=== PATIENT | female | born 1945 | race Caucasian/White ===

== ENCOUNTER 2020-09-16 08:20 | Emergency (ER) | payer OTHER, SELFPAY ==
[2020-09-16 08:33] VITALS: BP 145/56; PULSE 71; RESP 16; TEMP 36.4; O2SAT 98
--- NOTE | 2020-09-16 08:35 | PC.NURSE ---
was unable to give ua spec. and given water to drink per xpc tech.
--- NOTE | 2020-09-16 08:52 | ED.FEMALEGU ---
HPI - Female Genitourinary General Chief complaint: Urogenital-Female Stated complaint: UTI History of Present Illness HPI Narrative: This is a 74-year-old female that comes in complaining of abdominal pain in her lower pelvis area states that it feels like a urinary tract infection she has noticed that for the past week. Patient states that she has been having a little bit of nausea that started yesterday denies any back pain, fever, or any incontinence. Patient denies having much frequency states that she does have some urgency. Patient states she is has a history of diverticulitis but this is way far lower and it in her pelvis area and when she does not urinate she feels it more Related Data Home Medications Medication Instructions Recorded Confirmed calcium carbonate 500 mg calcium 500 mg PO DAILY 04/19/19 (1,250 mg) tablet cholecalciferol (vitamin D3) 25 1,000 unit PO DAILY 04/19/19 mcg (1,000 unit) capsule multivit and minerals-ferrous 15 ml PO DAILY 04/19/19 gluconate 9 mg iron/15 mL oral liquid omega-3 fatty acids 500 mg capsule 500 mg PO DAILY 04/19/19 Allergies Allergy/AdvReac Type Severity Reaction Status Date / Time celecoxib Allergy Intermediate Hives / Verified 04/05/19 12:09 Red Face Penicillins Allergy Other Verified 09/16/20 08:48 Review of Systems Review of Systems: Narrative: CONSTITUTIONAL: Denies fever, chills, or sweats. EYES: Denies visual changes, redness, or discharge. ENT: Denies rhinorrhea, congestion, sore throat, or otalgia. CARDIOVASCULAR:Denies chest pain, palpitations, or edema. RESPIRATORY: Denies cough or dyspnea. GASTROINTESTINAL: Denies abdominal pain, nausea, vomiting, or diarrhea. GENITOURINARY: Denies dysuria or hematuria abdominal pressure and some urgency. SKIN:[Denies rash or itching. MUSCULOSKELETAL:Denies back pain, joint pain, or myalgia. NEUROLOGIC: Denies headache, numbness, or weakness. PSYCHIATRIC:Denies anxiety or depression PMFSH Past Medical History Medical History Osteoporosis Social History Social History Gender identity (if verbalized by the patient): Female Comments At time as signature, I have reviewed and agree with nursing past medical, social, surgical and family history. Please see nursing chart for further information. There is no relevant family history pertinent to the presenting complaint. Exam Narrative: Exam Narrative: GENERAL:Well-appearing, well-nourished, and in no acute distress. HEAD:Normocephalic, atraumatic. EYES: PERRLA and EOMI. ENT: Nares clear, no rhinorrhea or epistaxis. Mucous membranes moist. NECK: Supple. CHEST: Clear to auscultation. No respiratory distress. HEART: Regular rate and rhythm. No murmur heard. Normal peripheral pulses. ABDOMEN: Soft, nontender, nondistended, normal active bowel sounds some urgency and frequency no pain with palpitation some nausea no vomiting. EXTREMITIES: Normal range of motion. No edema. SKIN: Warm, dry, no rash. NEURO: No focal deficits. Alert and oriented x3. Course [employer]/PA Physician Supervision Discussed with patient if symptoms do not resolve or she should become febrile she should follow-up with her primary care provider and or go to the local emergency room. Vital Signs Vital signs: Vital Signs Temperature 97.5 F L 09/16/20 08:33 Pulse Rate 71 09/16/20 08:33 Respiratory Rate 16 09/16/20 08:33 Blood Pressure 145/56 H 09/16/20 08:33 Pulse Oximetry 98 09/16/20 08:33 Temperature 97.5 F L 09/16/20 08:33 Pulse Rate 71 09/16/20 08:33 Respiratory Rate 16 09/16/20 08:33 Blood Pressure 145/56 H 09/16/20 08:33 Pulse Oximetry 98 09/16/20 08:33 MDM - Female Genitourinary MDM Narrative Medical decision making narrative: Urine is negative suggested follow up care with PCP due no culture at this time. Differential Diagnosis D
--- NOTE | 2020-09-16 09:26 | PC.NURSE ---
no urine cx order per business continuity analyst
== END 2020-09-16 09:07 | disposition home or self-care (01) ==
PROVIDERS: Emergency Provider Nurse Practitioner Family; PCP Emergency Medicine
DX: N30.00 Acute cystitis without hematuria (principal); M81.0 Age-related osteoporosis without current pathological fracture
CPT/HCPCS: 81003; 99213; G0463

== ENCOUNTER → 2020-11-14 13:17 | Outpatient (CLI) | payer OTHER, SELFPAY ==
--- NOTE | ~2020-11-14 | DEXA_ITS ---
Bone Density Report Name: Daina Bauman Age: 74 Sex: Female Ethnicity: White Date of : 1945 Indication: postmenopausal osteoporosis; monitoring treatment; height loss; hysterectomy; Referring Provider: AISHA KAUFFMAN Study: Bone densitometry was performed. Exam Date: November 14, 2020 Accession number: [id number] Bone Density: Region BMD T-score Z-score Classification AP Spine (L1-L4) 0.747 -2.7 -0.4 Osteoporosis Femoral Neck (Left) 0.607 -2.2 -0.2 Osteopenia Total Hip (Left) 0.692 -2.0 -0.4 Osteopenia Femoral Neck (Right) 0.623 -2.0 -0.1 Osteopenia Total Hip (Right) 0.721 -1.8 -0.1 Osteopenia Total Hip Mean 0.707 -1.9 -0.3 Osteopenia World Health Organization criteria for BMD impression classify patients as: Normal (T-score at or above -1.0), Osteopenia (T-score between -1.0 and -2.5), or Osteoporosis (T-score at or below -2.5). 10-year Fracture Risk: FRAX not reported because: Some T-score for Spine Total or Hip Total or Femoral Neck at or below -2.5 Treated for osteoporosis Previous Exams: Region Exam Age BMD T-score BMD Change BMD Change Date g/cm2 vs Baseline vs Previous AP Spine(L1-L4) 11/14/2020 74 0.747 -2.7 -0.002 -0.019 11/03/2018 72 0.766 -2.6 0.017 0.017 09/03/2016 70 0.749 -2.7 Total Hip(Left) 11/14/2020 74 0.692 -2.0 -0.023 -0.040* 11/03/2018 72 0.732 -1.7 0.017 0.017 09/03/2016 70 0.715 -1.9 Total Hip(Right) 11/14/2020 74 0.721 -1.8 -0.014 -0.031* 11/03/2018 72 0.752 -1.6 0.016 0.016 09/03/2016 70 0.735 -1.7 *Denotes significance at 95% confidence level, LSC for AP Spine = 0.022 g/cm2, LSC for Total Hip = 0.027 g/cm2 Clinical Information Provided by Patient: Smokes Is being treated for osteoporosis Has used the following medications: Fosamax (i.e. alendronate), Vitamin D, Calcium Has the following medical conditions: Hysterectomy Patient maximum height was 64 Menopause Age: 38 No regular weight bearing exercise Does not regularly consume dairy products Drinks caffeinated beverages Onset of menses at age 14 Number of children 3 Impression: The patient has osteoporosis, based on the Total Spine T-score. The patient has risk factors, including: smoking. The BMD for the Total Hip(Left) decreased, changing by -0.040 since the last DXA exam. The BMD for the Total Hip(Right) decre
--- NOTE | ~2020-11-14 | MM_ITS ---
EXAMINATION: MM screening [facility] BI w maria m HISTORY: Screening TECHNIQUE: Craniocaudal and mediolateral oblique 3-D tomosynthesis images were obtained and synthetic 2-D images were generated. CAD analysis was submitted and interpreted. COMPARISON: Comparison to multiple prior studies sequentially, with oldest reviewed study dated 03/11. BREAST PARENCHYMAL COMPOSITION: There are scattered areas of fibroglandular density. FINDINGS: There is no evidence of suspicious mass, calcification, or architectural distortion to sugg est malignancy in either breast. There has been no suspicious interval change. IMPRESSION: 1. No mammographic evidence of malignancy. 2. Recommend routine screening mammography in one year. BI-RADS Category 1: Negative Reviewed, dictated and finalized at location A.
== END ==
PROVIDERS: PCP Emergency Medicine; Visit Provider Emergency Medicine
DX: Z12.31 Encounter for screening mammogram for malignant neoplasm of breast (principal); M81.0 Age-related osteoporosis without current pathological fracture; M85.852 Other specified disorders of bone density and structure, left thigh; M85.851 Other specified disorders of bone density and structure, right thigh
CPT/HCPCS: 77063; 77067; 77080

== ENCOUNTER 2021-08-17 13:26 | Emergency (ER) | payer OTHER, SELFPAY ==
--- NOTE | ~2021-08-17 | XR_ITS ---
EXAMINATION: XR chest 2V Exam Date/Time: 08/17/2021 12:38 CDT CLINICAL HISTORY: COUGH, LT LOWER LUNG DIMISHED Comparison: 04/05/19. RESULT: Lines, tubes, and devices: None. Lungs and pleura: Senescent changes, otherwise clear. Cardiomediastinal silhouette: Stable cardiomediastinal silhouette. Other: No acute osseous or upper abdominal finding. IMPRESSION: No acute cardiopulmonary process Reviewed, dictated and finalized at location K.
[2021-08-17 13:33] VITALS: BP 158/56; PULSE 63; RESP 18; TEMP 36.6; O2SAT 98
--- NOTE | 2021-08-17 13:33 | ED.URI ---
HPI - URI/Sore Throat General Chief Complaint: Upper Respiratory Infection Stated Complaint: Cough Time Seen by Provider: 08/17/21 13:34 Source: patient, family, RN notes reviewed and old records reviewed Mode of arrival: ambulatory Limitations: no limitations History of Present Illness HPI Narrative: 75-year-old female presents to the [facility] with complaints of a cough for several weeks. Patient states that started as an upper respiratory issue. Has taken multiple [id number] products with no relief. Patient is a smoker, history of chronic bronchitis and pneumonia. Denies chest pain or abdominal pain. Denies fevers. MD elicited complaint: cough Related Data Home Medications Medication Instructions Recorded Confirmed calcium carbonate 500 mg calcium 500 mg PO DAILY 04/19/19 08/17/21 (1,250 mg) tablet cholecalciferol (vitamin D3) 25 1,000 unit PO DAILY 04/19/19 08/17/21 mcg (1,000 unit) capsule multivit and minerals-ferrous 15 ml PO DAILY 04/19/19 08/17/21 gluconate 9 mg iron/15 mL oral liquid omega-3 fatty acids 500 mg capsule 500 mg PO DAILY 04/19/19 08/17/21 Allergies Allergy/AdvReac Type Severity Reaction Status Date / Time celecoxib Allergy Intermediate Hives / Verified 08/17/21 13:31 Red Face Penicillins Allergy Other Verified 08/17/21 13:31 Review of Systems Review of Systems: All systems reviewed & are unremarkable except as noted in HPI and below Constitutional: Constitutional: Reports no additional constitutional complaints, Denies chills, Denies fever(s) and Denies headache(s) Eyes: Eyes: Reports no additional eye complaints ENT: Reports as per HPI, Denies vertigo, Denies dizziness, Denies headache(s), Denies nasal congestion and Denies sore throat Cardiovascular: Cardiovascular: Reports no additional cardiovascular complaints, Denies chest pain, Denies syncope, Denies rapid heart rate and Denies dyspnea Respiratory: Respiratory: Reports as per HPI, Reports cough, Denies dyspnea and Denies wheezing Gastrointestinal: Gastrointestinal: Reports no additional gastrointestinal complaints, Denies abdominal pain, Denies diarrhea, Denies nausea and Denies vomiting Musculoskeletal: Musculoskeletal: Reports no additional musculoskeletal complaints and Denies numbness Integumentary/Breasts: Skin/Breast: Reports system reviewed and no additional complaints, except as docu Neurologic: Reports system reviewed and no additional complaints, except as documented, Denies vertigo, Denies dizziness, Denies syncope, Denies headache(s), Denies focal weakness and Denies numbness Psychiatric: Psychiatric: Reports no additional psychiatric complaints Allergic/Immunologic: Allergic/Immunologic: Reports no additional allergic/immunologic complaints and Denies wheezing PMFSH Past Medical History Medical History Osteoporosis Social History Social History (Updated 08/17/21 @ 19:53 by Muna Mcdowell APRN) Smoking status: Current every day smoker Gender identity (if verbalized by the patient): Female Comments At the time of my signature, I reviewed and agree with the nursing past medical, surgical, social, and family history. There is no relevant family history pertinent to the patient complaint. Exam Const: General: cooperative, healthy appearing, no acute distress, well developed and alert Nutritional Appearance: well nourished Orientation/consciousness: patient oriented x3 Limitations: no limitations HENMT: Head: normal to inspection Ears: external ears normal, TM's normal bilaterally and EAC's normal Eyes: Conjunctivae: conjunctivae normal Pupils: Equal, round and reactive pupils present Neck: Neck: normal visual inspection, no lymphadenopathy and no meningeal signs Chest: Chest palpation & inspection: normal inspection of the chest Resp: Effort & Inspection: normal respiratory effort and no use of accessory muscles Auscultat
== END 2021-08-17 14:20 | disposition home or self-care (01) ==
PROVIDERS: Emergency Provider Nurse Practitioner; PCP Emergency Medicine
DX: J40 Bronchitis, not specified as acute or chronic (principal); F17.200 Nicotine dependence, unspecified, uncomplicated
CPT/HCPCS: 71046; 99213; G0463

== ENCOUNTER 2022-10-07 11:45 | Observation (INO) | payer OTHER, SELFPAY ==
[2022-10-07] VITALS (17 sets, daily range): BP systolic 134–209; BP diastolic 49–89; PULSE 72–81; RESP 12–27; TEMP 36.1–36.7; O2SAT 95–100; BMI 20.2
--- NOTE | ~2022-10-07 | MR_ITS ---
MRI of the brain Clinical History: Slurred speech Technique: Axial and sagittal T1-weighted images were acquired. These were followed by axial T2-weigh terrance, diffusion weighted, gradient, and FLAIR images.. Following intravenous administration of 10 cc M ultiHance gadolinium, T1-weighted fat-sat imaging was performed in the axial, sagittal, and coronal p lanes. Findings: There is no acute infarct, intracranial hemorrhage, or mass lesion. There is extensive speed reading teacher gurdeep white matter disease throughout the periventricular white matter bilaterally. Small chronic lacun ar infarct noted in the left frontal periventricular white matter. Ventricles and subarachnoid spaces are minimally dilated. Orbits are unremarkable. Paranasal sinuses and mastoid air cells are clear. Major intracranial flow voids are intact. Sagittal midline structures are intact. No abnormal postcontrast enhancement identified. IMPRESSION: No acute infarct, intracranial hemorrhage, or mass lesion. Extensive chronic microvascular ischemic change and small chronic lacunar infarct in the left frontal periventricular white matter. Reviewed, dictated and finalized at location . IMPRESSION: No acute infarct, intracranial hemorrhage, or mass lesion. Extensive chronic microvascular ischemic change and small chronic lacunar infar ct in the left frontal periventricular white matter.
--- NOTE | ~2022-10-07 | MR_ITS ---
MRA HEAD History: CVA, slurred speech Technique: 3D time of flight MRA of the head is performed. Findings: The right and left distal vertebral arteries and the basilar and posterior cerebral arterie s are normal. Right and left distal internal carotid arteries and anterior and middle cerebral arteri es are normal. There is no aneurysm, stenosis, or occlusion. Impression: No occlusion, stenosis, or aneurysm. Reviewed, dictated and finalized at location . Impression: No occlusion, stenosis, or aneurysm.
--- NOTE | ~2022-10-07 | US_ITS ---
Procedure: Duplex Doppler examination of the bilateral carotids. Indication: TIA Technique: Real time, color-flow and pulse wave Doppler examination of the bilateral carotids was performed. Findings: Espinosa scale ultrasonography of the right neck demonstrated small plaques at the proximal right interna l carotid artery. There was demonstration of normal color-flow and Doppler waveforms within the right common, internal and external carotid arteries. The peak systolic velocities in the right common, in ternal and external carotid arteries were demonstrated to be 102 cm/sec, 189 cm/sec and 113 cm/sec re spectively. The right ICA/CCA ratio was 2.2.The proximal right internal carotid artery demonstrates 2 0% stenosis relative to the normal distal artery lumen diameter. Espinosa scale sonography of the left neck demonstrated no significant plaque. There was demonstration of normal color-flow and wave forms within the left common, internal and external carotid arteries. The peak systolic velocities in the left common, internal and external carotid arteries were demonstrate d to be 122cm/sec, 97 cm/sec and 137 cm/sec respectively. The left ICA/CCA ratio was 0.9. The proxima l left internal carotid artery demonstrates 0% stenosis relative to the normal distal artery lumen di ameter. There was antegrade flow demonstrated in the bilateral vertebral arteries. Impression: Increased velocity in the proximal right internal carotid artery suggests a moderate degree (50-69%) stenosis, however grayscale images suggest a low-grade stenosis of approximately 20%. Consider CT ang iogram to further assess degree of stenosis. Note: The methodology used is an indirect measurement validated against a direct method (such as the NASCET criteria) that compares diameters at the stenosis to the distal ICA. Reviewed, dictated and finalized at location M. Impression: Increased velocity in the proximal right internal carotid artery suggests a mod erate degree (50-69%) stenosis, however grayscale images suggest a low-grade st enosis of approximately 20%. Consider CT angiogram to further assess degree of stenosis. Note: The methodology used is an indirect measurement validated against a direct meth od (such as the NASCET criteria) that compares diameters at the stenosis to the distal ICA.
--- NOTE | ~2022-10-07 | CT_ITS ---
CT head without contrast Indication: Expressive aphasia, right-sided facial droop Technique: Serial scans were obtained through the brain without the administration of contrast. Dose reduction technique was used on this scan by utilizing automated exposure control and iterative recon struction technique. The dose-length product (DLP) was 605.33 mGy-cm. Findings: There is no evidence of intracranial hemorrhage, mass lesion, or acute infarct. The ventri cles and subarachnoid spaces are unremarkable.. Moderate low attenuation regions are seen within the periventricular white matter bilaterally, likely representing changes from chronic microvascular isch emic disease. There is no evidence of edema, mass effect or midline shift. The visualized paranasal sinuses and mastoid air cells are clear. Impression: No intracranial hemorrhage, mass, or definite acute infarct is identified. If there is clinical jonathan rn for acute ischemia, then MR is recommended for further evaluation. Moderate chronic white matter changes, as above. Reviewed, dictated and finalized at location . Impression: No intracranial hemorrhage, mass, or definite acute infarct is identified. If t here is clinical concern for acute ischemia, then MR is recommended for further evaluation. Moderate chronic white matter changes, as above.
--- NOTE | ~2022-10-07 | CT_ITS ---
CT ANGIOGRAM NECK AND HEAD History: Expressive aphasia. Technique: Serial spiral axial images through the head and neck were obtained during arterial phase I V injection of 100 cc of Omnipaque 350. 3-D postprocessing and MIP images were then reconstructed on the remote workstation. Dose reduction technique was used on this scan by utilizing automated exposur e control and iterative reconstruction technique. The dose-length product (DLP) was 1127.25 mGy-cm. CTA neck findings: Left vertebral is patent, unremarkable. Right vertebral artery appears to be felipe edly hypoplastic with areas of complete occlusion proximally. Vertebral artery dissection is a potent ial alternative consideration. Bilateral common carotid, internal carotid, and external carotid arter ies are patent. No stenosis or aneurysm of these vessels. The proximal right internal carotid artery demonstrates 0% stenosis relative to the normal distal artery lumen diameter. The proximal left inter nal carotid artery demonstrates 0% stenosis relative to the normal distal artery lumen diameter. Mild to moderate emphysema noted with biapical pulmonary scarring CTA head findings: Distal vertebral arteries, basilar artery, and posterior cerebral arteries are pat ent. Distal internal carotid arteries, middle cerebral arteries, and anterior cerebral arteries are p atent. No large vessel occlusion. No stenosis or aneurysm. 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 Diagnostic considerations i nclude partially hypoplastic vessel versus possibility of vertebral artery dissection proximally. Cor relate clinically. Axial T1 fat-sat MR images would be recommended for most sensitive evaluation for dissection, if clinically indicated. No other significant vascularity reality seen. Mild to moderate emphysema. Reviewed, dictated and finalized at location . 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 Diagn ostic considerations include partially hypoplastic vessel versus possibility of vertebral artery dissection proximally. Correlate clinically. Axial T1 fat-sat MR images would be recommended for most sensitive evaluation for dissection, i f clinically indicated. No other significant vascularity reality seen. Mild to moderate emphysema.
--- NOTE | 2022-10-07 11:55 | ECG_ITS ---
Measurements Intervals Leon Rate: 74 P: 58 CA: 125 QRS: 59 QRSD: 80 T: 62 QT: 394 QTc: 438 Interpretive Statements SINUS RHYTHM NORMAL ELECTROCARDIOGRAM NO PREVIOUS ECG AVAILABLE FOR COMPARISON Electronically Signed On 10-08-2022 16:53:44 CDT by Cabrera Mcintyre M.D.
[2022-10-07 12:10] LABS: Basophils Percent Auto 0.4 % (0.2-1.2); Eosinophils Absolute Auto 0.1 K/mm3 (0-0.3); Eosinophils Percent Auto 0.7 % (0-4.4); Hematocrit 38.5 % (37.0-47.0); Hemoglobin 12.9 g/dL (12.0-15.0); Immature Granulocyte Absolute 0.02 K/mm3 (0.00-0.031); Immature Granulocyte Percent A 0.2 % (0-0.5); Lymphocytes Percent Auto 39.8 % (18.3-44.2); Mean Corpuscular HGB Conc 33.5 g/dl (32-36); Mean Corpuscular Hemoglobin 31.1 pg (26-34); Mean Corpuscular Volume 92.8 fl (80-100); Mean Platelet Volume 12.1 fl (7.4-10.4); Monocytes Percent Auto 12.5 % (2.6-8.5); Neutrophils Absolute Auto 3.8 K/mm3 (1.3-6.7); Neutrophils Percent Auto 46.4 % (45.5-73.1); Platelet Count Result 238 k/mm3 (150-375); Red Blood Count 4.15 M/mm3 (4.2-5.4); Red Cell Distribution Width 13.2 % (11.5-14.5); White Blood Count 8.3 K/mm3 (4.5-10.0)
[2022-10-07 12:21] LABS: Alanine Aminotransferase 23 U/L (6-35); Alkaline Phosphatase 75 U/L (38-126); Anion Gap 6 mmol/L (8-16); Aspartate Amino Transferase 35 U/L (14-36); Bilirubin,Total 0.6 mg/dL (0.2-1.3); Blood Urea Nitrogen 10 mg/dL (7-17); Calcium 8.6 mg/dL (8.4-10.2); Carbon Dioxide 32 mmol/L (22-30); Chloride 102 mmol/L (98-107); Estimated CRCL calculation 50 ml/min; Estimated Glomerular Filt Rate > 60; Glucose 100 mg/dL (65-110); Potassium 3.3 mmol/L (3.4-5.0); Sodium 140 mmol/L (137-145)
[2022-10-07 12:51] LABS: Appearance Urine Clear (Clear); Bacteria Urine None Seen /hpf; Bilirubin Urine Negative (Negative); Blood Urine Negative (Negative); Color Urine Dark Yellow (Yellow); Glucose Urine UA Negative (Negative); Ketones Urine Negative (Negative); Leukocyte Esterase Ur Negative LEU/UL (Negative); Nitrate Urine Negative (Negative); Non Pathogenic Casts 0-2; Protein Urine 1+ mg/dL (Negative); RBC Urine 0-2 /hpf (0-2); Specific Grav Ur 1.015 (1.001-1.035); Squamous Epithelial Cell Urine None seen /hpf (Few); WBC Urine 0-5 /hpf
--- NOTE | 2022-10-07 13:01 | ED.AMS ---
HPI - Altered Mental Status General Chief Complaint: Altered Mental Status Stated Complaint: altered mental status Time Seen by Provider: 10/07/22 12:43 History of Present Illness HPI narrative: Patient is a 76-year-old female presenting with speech difficulties. Last known well was approximately 20 hours ago. Patient's daughter is at bedside and states that her brother was at the patient's house yesterday afternoon and she was normal. Patient's daughter saw her this morning and noticed that her speech was abnormal. States that she is just speaking incomprehensibly. Patient is alert and following commands. She has garbled speech and is speaking somewhat nonsensically though she is able to answer yes and no questions without difficulty. No numbness or weakness. Complains of a sinus headache but no other complaints. Related Data Home Medications Medication Instructions Recorded Confirmed calcium carbonate 500 mg calcium 500 mg PO DAILY 04/19/19 10/07/22 (1,250 mg) tablet (Calcium 500) cholecalciferol (vitamin D3) 25 1,000 unit PO DAILY 04/19/19 10/07/22 mcg (1,000 unit) capsule multivit and minerals-ferrous 15 ml PO DAILY 04/19/19 10/07/22 gluconate 9 mg iron/15 mL oral liquid (multivitamin with minerals) omega-3 fatty acids 500 mg capsule 500 mg PO DAILY 04/19/19 10/07/22 Allergies Allergy/AdvReac Type Severity Reaction Status Date / Time celecoxib Allergy Intermediate Hives / Verified 10/07/22 17:44 Red Face Penicillins Allergy Other Verified 10/07/22 17:44 Review of Systems Review of Systems: All systems reviewed & are unremarkable except as noted in HPI and below PMFSH Past Medical History Medical History (Updated 10/08/22 @ 16:06 by Radha Buck MD) Osteoporosis Psoriasis Surgical History Surgical History (Updated 10/07/22 @ 19:56 by Yesenia Negron NP) History of appendectomy History of oophorectomy Family History Family History Mother Cerebrovascular accident, Onset Age: 80 Patient's mother is , Onset Age: 80 Father Family history of chronic obstructive pulmonary disease, Onset Age: 82 Family history of type 2 diabetes mellitus, Onset Age: 82 Patient's father is , Onset Age: 82 Social History Social History (Updated 10/07/22 @ 19:56 by Yesenia Negron NP) Social History: The patient has 3 children. She is . She is retired from banking. The patient continues to smoke 1 pack a cigarettes a day. Code status full code Smoking packs per day: 1 Smoking cigarettes per day: 20.0 Smoking status: Current every day smoker Tobacco type: cigarettes Alcohol intake: never Substance use: never Substance use type: does not use Lack of Transportation: No Lack of Food: Never True Current Housing: I Have Housing Concerned About Future Housing: No Difficulty Paying Gas/Electric Bills: No Difficulty Paying for Meds: No Currently Unemployed: No Education: Associate Degree Difficulty w/ Childcare or Family Care: No Gender identity (if verbalized by the patient): Female Spiritual care concerns: No Exam Narrative: GENERAL: Well-appearing, well-nourished, and in no acute distress. HEAD: Normocephalic, atraumatic. EYES: PERRLA and EOMI. ENT: Nares clear, no rhinorrhea or epistaxis. Mucous membranes moist. NECK: Supple. CHEST: Clear to auscultation. No respiratory distress. HEART: Regular rate and rhythm. No murmur heard. Normal peripheral pulses. ABDOMEN: Soft, nontender, nondistended EXTREMITIES: Normal range of motion. No edema. SKIN: Warm, dry, no rash. NEURO: +expressive aphasia; no sensory deficits, 5/5 strength in all extremities; no facial droop, no pronator drift PSYCH: Normal mood and affect. Course Vital Signs Vital signs: Vital Signs Temperature 98.1 F 10/07/22 11:49 Pulse Rate 72 10/07/22
[2022-10-07 13:10] LABS: Add Urine Microscopic? YES
[2022-10-07] MEDS: SODIUM CHLORIDE 0.9% IV 1,000 ML 999 ML IV CONT (13:35)
[2022-10-07 14:48] LABS: INR 1.1; Prothrombin Time 15.2 Seconds (11.1-14.7)
[2022-10-07 14:49] LABS: Partial Thromboplastin Time 31.4 SECONDS (22.3-36.8)
--- NOTE | 2022-10-07 15:17 | PC.NURSE ---
C collar placed on pt at this time per Dr. Buck
[2022-10-07] MEDS: ACETAMINOPHEN 500 MG TABLET 1000 MG PO (17:05)
--- NOTE | 2022-10-07 17:15 | ADMGEN ---
This patient, Daina Bauman, was admitted to IMU Room 206-02. Patient/family oriented to hospital policies and general routines including ID bracelet, bed and alarms, visiting hours, pain management, procedures, bathroom and other care routines, personal items, smoking policy, room service/diet, and visiting hours. Information on how to activate the Rapid Response Team has been discussed. Patient/Family are encouraged to report perceived risks to care and to ask questions if they do not understand what they are told or what they should do.
[2022-10-07] MEDS: hydrALAZINE HCL 20 MG/ML VIAL 10 MG IV PUSH (17:43)
--- NOTE | 2022-10-07 18:02 | PM.IMHP ---
H&P: HPI History of Present Illness Date/Time: 10/07/22 18:02 Chief Complaint: Altered mental status Narrative: This is a 76-year-old female patient who had been her normal self. The patient was seen by her son last night he stated that she was her normal usual self. However this morning she woke up and went to her daughter's house and was having difficulty speaking. The patient knew what she wanted to say but could not get the words out. Her daughter reported that her speech was incomprehensible. The patient is answering questions for me at this time. The patient stated that she had a frontal headache for approximately 2 days. She stated that she took some Tylenol and her headache has resolved since then. The patient has no history of hypertension but her blood pressure is elevated today.Head and neck CTA was read as followsVery low caliber right vertebral artery with areas of proximal occlusion. Diagnostic considerations include partially hypoplastic vessel versus possibility of vertebral artery dissection proximally. Correlate clinically. Axial T1 fat-sat MR images would be recommended for most sensitive evaluation for dissection, if clinically indicated. No other significant vascularity reality seen. Mild to moderate emphysema. Head CT was read as a following No intracranial hemorrhage, mass, or definite acute infarct is identified. If there is clinical concern for acute ischemia, then MR is recommended for further evaluation. Moderate chronic white matter changes, as above. The patient was given IV fluids, Tylenol and hydralazine. The ED provider noted that she spoke with the neurologist Dr. Stern who stated that the patient needed higher level care. ER provider noted that she called slu and they recommended that the patient receive an MRI/MRA and placed the patient in a cervical collar until the results of the MRI/MRA. Later on there was further discussion between the neurologist in ER provider. According to the ED provider the patient did not require transfer at this time. The patient is being admitted to observation status on the date of service of 10/07/2022. Review of Systems Review of Systems: All systems reviewed & are unremarkable except as noted in HPI and below Constitutional: Constitutional: Reports as per HPI and Reports no additional constitutional complaints Eyes: Eyes: Reports as per HPI and Reports no additional eye complaints ENT: Reports system reviewed and no additional complaints, except as documented and Reports Normal hearing present Cardiovascular: Cardiovascular: Reports no additional cardiovascular complaints Respiratory: Respiratory: Reports no additional respiratory complaints and Reports no additional respiratory complaints Gastrointestinal: Gastrointestinal: Reports as per HPI and Reports no additional gastrointestinal complaints Musculoskeletal: Musculoskeletal: Reports no additional musculoskeletal complaints Integumentary/Breasts: Skin/Breast: Reports system reviewed and no additional complaints, except as docu and Reports as per HPI Neurologic: Reports system reviewed and no additional complaints, except as documented, Reports as per HPI and Reports Normal hearing present Psychiatric: Psychiatric: Reports no additional psychiatric complaints and Reports as per HPI Endocrine: Endocrine: Reports no additional endocrine complaints Hematologic/Lymphatic: Hematologic/Lymphatic: Reports no additional hematologic/lymphatic complaints Allergic/Immunologic: Allergic/Immunologic: Reports no additional allergic/immunologic complaints PMFSH Past Medical History Medical History (Updated 10/07/22 @ 20:04 by Yesenia Negron NP) Osteoporosis Psoriasis Surgical History Surgical History (Updated 10/07/22 @ 19:56 by Yesenia Negron NP) History of appendectomy History of oophorectomy Family History Family History Mother
[2022-10-07] MEDS: CLOBETASOL PROPIONATE 0.05% CREAM 15 GM 1 APPLIC TOPICAL (21:17)
[2022-10-08] VITALS (11 sets, daily range): BP systolic 142–147; BP diastolic 54–93; PULSE 63–74; RESP 18–24; TEMP 35.7–36.7; O2SAT 95–97
--- NOTE | 2022-10-08 | ECHO_ITS ---
Patient Info Name: Daina Bauman Age: 76 years : 1945 Gender: Female Ht: 63 in Wt: 114 lbs BSA: 1.51 m2 HR: 78 bpm BP: 142 / 54 mmHg Technical Quality: Fair Exam Date: 10/08/2022 9:15 AM Exam Location: [facility] Pulmonary Exam Room: [facility] [place] Patient Status: Inpatient Admit Date: 10/07/2022 Staff Ordering Physician: Yesenia Negron NP Addressing Machine Operator: Tita Moore RDCS Attending Provider: Cabrera Tyson MD Referring Physician: Jamil HORNER; Exam Type: CA echo doppler w bubble study Study Info Indications - TIA Complete two-dimensional, color flow and Doppler transthoracic echocardiogram is performed with agitated saline. Contrast/Agitated Saline Contrast/Ag. Saline: Agitated Saline Amount: 20.00 ml Existing IV Access: Yes Summary 1. Left ventricular chamber dimension is normal. 2. Left ventricular systolic function is normal, estimated at 60-65%. 3. The left ventricular diastolic function is grade I diastolic dysfunction. 4. E/e' 8 is minimally elevated. 5. Left atrial chamber dimension is mildly enlarged. 6. There is moderate aortic valve sclerosis. 7. There is mild to moderate aortic valve stenosis with a peak velocity of 214 cm/s, mean gradient of 9 mmHg, and aortic valve area of 1.5 cm2. 8. There is mild to moderate aortic valve regurgitation. 9. There is mild mitral valve regurgitation. 10. There is trace tricuspid valve regurgitation. 11. Mild pulmonary hypertension, estimated pulmonary arterial systolic pressure is 40 mmHg. Left Ventricle E/e' 8 is minimally elevated. Left ventricular chamber dimension is normal. Left ventricular systolic function is normal, estimated at 60-65%. The left ventricular diastolic function is grade I diastolic dysfunction. Right Ventricle Right ventricular systolic function is normal and with normal TAPSE 2.2 cm. Right ventricular chamber dimension is normal. Left Atria Left atrial chamber dimension is mildly enlarged. Right Atria Right atrial chamber dimension is normal. Atrial Septum Agitated saline injection with and without valsalva maneuver opacified right side cardiac chambers without shunt to left side cardiac chambers. Intact interatrial septum visualized by 2D and agitated saline imaging. Aortic Valve The aortic valve is trileaflet. There is moderate aortic valve sclerosis. There is mild to moderate aortic valve stenosis with a peak velocity of 214 cm/s, mean gradient of 9 mmHg, and aortic valve area of 1.5 cm2. There is mild to moderate aortic valve regurgitation. Pulmonic Valve There is no pulmonic regurgitation. Mitral Valve There is no mitral valve stenosis. There is mild mitral valve regurgitation. Tricuspid Valve There is trace tricuspid valve regurgitation. Mild pulmonary hypertension, estimated pulmonary arterial systolic pressure is 40 mmHg. Pericardium/Pleural There is no pericardial effusion. Inferior Vena Cava Normal inferior vena cava with >50% collapse upon inspiration consistent with normal right atrial pressure, 5 mmHg. Aorta The aortic root size at the sinus of Valsalva is normal. Left Ventricular Outflow Tract Name Value Normal LVOT 2D LVOT Diameter 2.0 cm LVOT Doppler
[2022-10-08 05:01] LABS: Basophils Percent Auto 0.4 % (0.2-1.2); Eosinophils Absolute Auto 0.1 K/mm3 (0-0.3); Eosinophils Percent Auto 1.2 % (0-4.4); Hematocrit 38.7 % (37.0-47.0); Hemoglobin 13.2 g/dL (12.0-15.0); Immature Granulocyte Absolute 0.01 K/mm3 (0.00-0.031); Immature Granulocyte Percent A 0.1 % (0-0.5); Lymphocytes Absolute Auto 3.02 K/mm3 (0.9-3.2); Lymphocytes Percent Auto 38.8 % (18.3-44.2); Mean Corpuscular HGB Conc 34.1 g/dl (32-36); Mean Corpuscular Hemoglobin 31.4 pg (26-34); Mean Corpuscular Volume 92.1 fl (80-100); Mean Platelet Volume 12.2 fl (7.4-10.4); Monocytes Absolute Auto 1.1 K/mm3 (0.1-0.6); Monocytes Percent Auto 13.8 % (2.6-8.5); Neutrophils Absolute Auto 3.6 K/mm3 (1.3-6.7); Neutrophils Percent Auto 45.7 % (45.5-73.1); Platelet Count Result 221 k/mm3 (150-375); Red Cell Distribution Width 13.2 % (11.5-14.5); White Blood Count 7.8 K/mm3 (4.5-10.0)
[2022-10-08 05:08] LABS: Alanine Aminotransferase 20 U/L (6-35); Albumin Level 3.8 g/dL (3.5-5.1); Alkaline Phosphatase 81 U/L (38-126); Anion Gap 3 mmol/L (8-16); Aspartate Amino Transferase 25 U/L (14-36); Bilirubin,Total 0.6 mg/dL (0.2-1.3); Blood Urea Nitrogen 7 mg/dL (7-17); Calcium 8.3 mg/dL (8.4-10.2); Carbon Dioxide 31 mmol/L (22-30); Chloride 105 mmol/L (98-107); Cholesterol 217 mg/dL (0-200); Estimated CRCL calculation 57 ml/min; Estimated Glomerular Filt Rate > 60; Glucose 94 mg/dL (65-110); HDL Direct 46 mg/dL; Magnesium 1.3 mg/dL (1.6-2.3); Potassium 3.2 mmol/L (3.4-5.0); Sodium 139 mmol/L (137-145); Triglycerides 83 mg/dL (<150)
[2022-10-08 05:19] LABS: LDL Cholesterol Direct 144 mg/dL
[2022-10-08] MEDS: ASPIRIN 81 MG ENTERIC TABLET PO (08:41)
[2022-10-08] MEDS: OMEGA 3 POLYUNSAT FATTY ACIDS 1 GM CAP PO (08:41)
[2022-10-08] MEDS: CLOBETASOL PROPIONATE 0.05% CREAM 15 GM 1 APPLIC TOPICAL (08:42)
--- NOTE | 2022-10-08 09:48 | WPDNEURCNPN ---
Assessment and Plan Assessment and plan (1) TIA (transient ischemic attack): Code(s): G45.9 - Transient cerebral ischemic attack, unspecified Status: Acute (2) Elevated blood pressure reading: Code(s): R03.0 - Elevated blood-pressure reading, without diagnosis of hypertension Status: Acute (3) Elevated cholesterol: Code(s): E78.00 - Pure hypercholesterolemia, unspecified Status: Acute Plan Daina Bauman is a 76 year old female with a history of osteoporosis and psoriasis presenting due to word finding difficulty that self-resolved, concerning for TIA. MRI brain negative for acute stroke. - Continue daily aspirin 81mg - Patient will need statin, goal LDL <70 - Check A1c - Surface echocardiogram is pending -- if unrevealing, okay to discharge Consult date: 10/08/22 Reason for consult: TIA HPI: Daina Bauman is a 76 year old female with a history of osteoporosis and psoriasis presenting due to concerns for TIA. Patient's last known well was when she went to bed on 10/06. She woke up on 10/07 and noted that she was having difficulty with word finding. She did not have any other focal deficits including weakness or numbness. When she presented to [place] ED, her symptoms had mostly resolved. CT head was unrevealing. CTA showed small caliber R vertebral artery that was concerning for hypoplasia vs dissection. Case was discussed by ER provider with [facility] stroke team and patient was not a candidate for transfer -- they recommended that she get an MRI and MRA brain during admission. Her blood pressure was initially up to 209 systolic, but now has been mostly in the 140s. MRI brain is negative for acute stroke. MRA brain is negative for dissection, occlusion, or stenosis. Patient was not taking any aspirin or statin, but has been started on daily aspirin during this admission. Her LDL level is 144. No A1c available for review. [facility] Past Medical History Medical History (Updated 10/07/22 @ 20:04 by Yesenia Negron NP) Osteoporosis Psoriasis Surgical History Surgical History (Updated 10/07/22 @ 19:56 by Yesenia Negron NP) History of appendectomy History of oophorectomy Family History Family History Mother Cerebrovascular accident, Onset Age: 80 Patient's mother is , Onset Age: 80 Father Family history of chronic obstructive pulmonary disease, Onset Age: 82 Family history of type 2 diabetes mellitus, Onset Age: 82 Patient's father is , Onset Age: 82 Social History Social History (Updated 10/07/22 @ 19:56 by Yesenia Negron NP) Social History: The patient has 3 children. She is . She is retired from banking. The patient continues to smoke 1 pack a cigarettes a day. Code status full code Smoking packs per day: 1 Smoking cigarettes per day: 20.0 Smoking status: Current every day smoker Tobacco type: cigarettes Alcohol intake: never Substance use: never Substance use type: does not use Lack of Transportation: No Lack of Food: Never True Current Housing: I Have Housing Concerned About Future Housing: No Difficulty Paying Gas/Electric Bills: No Difficulty Paying for Meds: No Currently Unemployed: No Education: Associate Degree Difficulty w/ Childcare or Family Care: No Gender identity (if verbalized by the patient): Female Spiritual care concerns: No Meds Home Medications and Allergies Home Medications Medication Instructions Recorded Confirmed Type calcium carbonate 500 mg calcium 500 mg PO DAILY 04/19/19 10/07/22 History (1,250 mg) tablet (Calcium 500) cholecalciferol (vitamin D3) 25 1,000 unit PO DAILY 04/19/19 10/07/22 History mcg (1,000 unit) capsule multivit and minerals-ferrous 15 ml PO DAILY 04/19/19 10/07/22 History gluconate 9 mg iron/15 mL oral liquid (multivitamin with minerals) omega-3 fatty
[2022-10-08 11:42] LABS: Hemoglobin A1C 5.1 % (<5.7)
--- NOTE | 2022-10-08 14:11 | PCOTNOTE ---
Attempted to see pt. for occupational therapy evaluation. Pt. is D/C today and states that she does not have any need for therapy services at this time, daughter present and confirmed. Nursing updated.
--- NOTE | 2022-10-08 14:34 | PM.DS ---
DS: Admitting Diagnosis Discharge Date 10/08/2022 Admitting Diagnosis TIA DS: Discharge Diagnosis Discharge Diagnosis (1) TIA (transient ischemic attack): Code(s): G45.9 - Transient cerebral ischemic attack, unspecified Status: Acute (2) Psoriasis: Code(s): L40.9 - Psoriasis, unspecified Status: Acute (3) Osteoporosis: Code(s): M81.0 - Age-related osteoporosis without current pathological fracture Status: Acute (4) Elevated blood pressure reading: Code(s): R03.0 - Elevated blood-pressure reading, without diagnosis of hypertension Status: Acute DS: Summary Hospital Course Hospital Course: 76-year-old with history of osteoporosis presented with word-finding difficulty. CT head was unrevealing. CTA showed small caliber right vertebral artery concerning for hyperplasia versus dissection. [facility]. MRI MRA was done which was negative for stroke. Started on aspirin and atorvastatin. LDL 140. A1c is normal. Does smoke. Discussed smoking cessation. Hypertensive will start on amlodipine 5 mg daily. Follow-up with PCP. Neurology consulted. Echo with no thrombus or PFO Time Spent with Patient Time attestation: Total time spent providing and/or coordinating discharge services: 45 minutes DS: Data Data Completed and Pending Completed studies during hospitalization: Exam Type: ? ? CA echo doppler w bubble study Study Info Indications ?? ? - TIA Complete two-dimensional, color flow and Doppler transthoracic echocardiogram is performed with agitated saline. Account #: ? ? [id number] Contrast/Agitated Saline Contrast/Ag. Saline: ? ? Agitated Saline Amount: ? ? 20.00 ml Existing IV Access: ? ? Yes Summary ? 1. Left ventricular chamber dimension is normal. ? 2. Left ventricular systolic function is normal, estimated at 60-65%. ? 3. The left ventricular diastolic function is grade I diastolic dysfunction. ? 4. E/e' 8 is minimally elevated. ? 5. Left atrial chamber dimension is mildly enlarged. ? 6. There is moderate aortic valve sclerosis. ? 7. There is mild to moderate aortic valve stenosis with a peak velocity of 214 cm/s, mean gradient of 9 mmHg, and aortic valve area of 1.5 cm2. ? 8. There is mild to moderate aortic valve regurgitation. ? 9. There is mild mitral valve regurgitation. ? 10. There is trace tricuspid valve regurgitation. ? 11. Mild pulmonary hypertension, estimated pulmonary arterial systolic pressure is 40 mmHg. Left Ventricle ? E/e' 8 is minimally elevated. ? Left ventricular chamber dimension is normal. ? Left ventricular systolic function is normal, estimated at 60-65%. ? The left ventricular diastolic function is grade I diastolic dysfunction. Right Ventricle ? Right ventricular systolic function is normal and with normal TAPSE 2.2 cm. ? Right ventricular chamber dimension is normal. Left Atria ? Left atrial chamber dimension is mildly enlarged. Right Atria ? Right atrial chamber dimension is normal. Atrial Septum ? Agitated saline injection with and without valsalva maneuver opacified right side cardiac chambers without shunt to left side cardiac chambers. ? Intact interatrial septum visualized by 2D and agitated saline imaging. Aortic Valve ? The aortic valve is trileaflet. ? There is moderate aortic valve sclerosis. ? There is mild to moderate aortic valve stenosis with a peak velocity of 214 cm/s, mean gradient of 9 mmHg, and aortic valve area of 1.5 cm2. ? There is mild to moderate aortic valve regurgitation. Pulmonic Valve ? There is no pulmonic regurgitation. Mitral Valve ? There is no mitral valve stenosis. ? There is mild mitral valve regurgitation. Tricuspid Valve ? There is trace tricuspid valve regurgitation. ? Mild pulmonary hypertension, estimated pulmonary arterial systolic pressure is 40 mmHg. Pericardium/Pleu
== END 2022-10-08 14:50 | disposition home or self-care (01) ==
LOC: ANHED 13:07 → ANHIMU 18:00
PROVIDERS: Emergency Medicine; Nurse Practitioner; Admitting Provider Chiropractor; Emergency Provider Emergency Medicine; PCP Emergency Medicine; Visit Provider Internal Medicine
DX: G45.9 Transient cerebral ischemic attack, unspecified (principal); L40.9 Psoriasis, unspecified; M81.0 Age-related osteoporosis without current pathological fracture; R03.0 Elevated blood-pressure reading, without diagnosis of hypertension; E78.00 Pure hypercholesterolemia, unspecified; R90.82 White matter disease, unspecified; I08.0 Rheumatic disorders of both mitral and aortic valves; I27.20 Pulmonary hypertension, unspecified; J43.9 Emphysema, unspecified; E87.6 Hypokalemia; R51.9 Headache, unspecified; F17.210 Nicotine dependence, cigarettes, uncomplicated; Z82.3 Family history of stroke; Z79.899 Other long term (current) drug therapy
CPT/HCPCS: 36415; 70450; 70496; 70498; 70544; 70553; 80053; 80061; 81001; 83036; 83735; 84443; 85025; 85610; 85730; 93005; 93306; 93880; 96361; 96375; 97161; 99285; A9270; A9577; G0378; J0360; J7030; L0140; Q9967

== ENCOUNTER 2023-09-23 10:31 | Emergency (ER) | payer OTHER, SELFPAY ==
[2023-09-23 10:50] VITALS: BP 127/73; PULSE 62; RESP 16; TEMP 36.8; O2SAT 100
[2023-09-23 10:52] VITALS: BP 127/73; PULSE 62; RESP 16; TEMP 36.8; O2SAT 100
--- NOTE | 2023-09-23 11:13 | ED.URI ---
HPI - URI/Sore Throat General Chief Complaint: Upper Respiratory Infection Stated Complaint: throat hurts Time Seen by Provider: 09/23/23 10:59 Source: patient and RN notes reviewed Mode of arrival: ambulatory Limitations: no limitations History of Present Illness HPI Narrative: Patient presents today with a 9-10 day history of sore throat, right ear pain, congestion, cough. Denies shortness of breath, fever, difficulty swallowing. Currently rates her pain 8/10 and has been taking ibuprofen, Zyrtec D, and Claritin without relief. Denies known sick contacts. Related Data Home Medications Medication Instructions Recorded Confirmed calcium carbonate (Calcium 500) 500 mg PO DAILY 04/19/19 09/23/23 cholecalciferol (vitamin D3) 25 1,000 unit PO DAILY 04/19/19 09/23/23 mcg (1,000 unit) capsule multivit and minerals-ferrous 15 ml PO DAILY 04/19/19 09/23/23 gluconate 9 mg iron/15 mL oral liquid (multivitamin with minerals) omega-3 fatty acids 500 mg capsule 500 mg PO DAILY 04/19/19 09/23/23 Allergies Allergy/AdvReac Type Severity Reaction Status Date / Time celecoxib Allergy Intermediate Hives / Verified 09/23/23 10:49 Red Face Penicillins Allergy Rash Verified 09/23/23 11:14 Review of Systems Review of Systems: CONSTITUTIONAL: Denies body aches, fever, chills, or sweats. EYES: Denies visual changes, redness, or discharge. ENT: Denies rhinorrhea. + congestion, right ear pain, sore throat CARDIOVASCULAR: Denies chest pain, palpitations, or edema. RESPIRATORY: Denies dyspnea.+ cough GASTROINTESTINAL: Denies abdominal pain, nausea, vomiting, or diarrhea. GENITOURINARY: Denies dysuria or hematuria. SKIN: Denies rash, itching, or wounds. MUSCULOSKELETAL: Denies back pain, joint pain, or myalgia. NEUROLOGIC: Denies headache, numbness, tingling, or weakness. PSYCH: Denies depression or anxiety. [facility] Past Medical History Medical History Depression Osteoporosis Psoriasis Sinusitis Surgical History Surgical History History of appendectomy History of oophorectomy Family History Family History Mother Cerebrovascular accident, Onset Age: 80 Patient's mother is , Onset Age: 80 Father Family history of chronic obstructive pulmonary disease, Onset Age: 82 Family history of type 2 diabetes mellitus, Onset Age: 82 Patient's father is , Onset Age: 82 Social History Social History Social History: The patient has 3 children. She is . She is retired from banking. The patient continues to smoke 1 pack a cigarettes a day. Code status full code Smoking packs per day: 1 Smoking cigarettes per day: 20.0 Smoking status: Current every day smoker Tobacco type: cigarettes Alcohol intake: never Substance use: never Substance use type: does not use Lack of Transportation: No Lack of Food: Never True Current Housing: I Have Housing Concerned About Future Housing: No Difficulty Paying Gas/Electric Bills: No Difficulty Paying for Meds: No Currently Unemployed: No Education: High School Diploma/GED Difficulty w/ Childcare or Family Care: No Gender identity (if verbalized by the patient): Female Spiritual care concerns: No Comments At time of signature, I have reviewed and agree with nursing past medical, surgical, social and family history unless otherwise noted. Please see nursing chart for further information. There is no relevant family history pertinent to the presenting complaint Exam Narrative: GENERAL: Well-appearing, well-nourished, and in no acute distress. HEAD: Normocephalic, atraumatic. EYES: EOMI. No redness or drainage. Conjunctivae normal. ENT: Mucous membra
== END 2023-09-23 11:21 | disposition home or self-care (01) ==
PROVIDERS: Emergency Provider Nurse Practitioner; PCP Emergency Medicine
DX: J01.90 Acute sinusitis, unspecified (principal); F17.210 Nicotine dependence, cigarettes, uncomplicated; M81.0 Age-related osteoporosis without current pathological fracture; L40.9 Psoriasis, unspecified
CPT/HCPCS: 87081; 87880; 99213; G0463

== ENCOUNTER 2023-12-23 10:21 | Outpatient (CLI) | payer OTHER, SELFPAY ==
--- NOTE | ~2023-12-23 | CT_ITS ---
EXAMINATION: CT sinus wo con DATE: 12/23/2023 10:33 INDICATION: Chronic sinusitis, unspecified. TECHNIQUE: Computed tomography (CT) of the paranasal sinuses was performed without intravenous contra st. Iterative reconstruction technique was employed. The dose-length product was 264.97 mGy-cm. COMPARISON: None FINDINGS: There is mild mucosal thickening in the frontal recesses. There is mild mucosal thickening in the anterior ethmoid sinuses and inferior right maxillary sinus. The left maxillary sinus and sphe noid sinuses are clear. There is rightward deviation of the nasal septum. The ostiomeatal units are p atent. There is a right-sided Jailyn cell. IMPRESSION: 1. Mild mucosal thickening in the paranasal sinuses. 2. Rightward deviation of the nasal septum. Reviewed, dictated and finalized at location A.
== END 2023-12-23 10:22 | disposition home or self-care (01) ==
LOC: MICIMG 10:22
PROVIDERS: PCP Emergency Medicine; Visit Provider Emergency Medicine
DX: J32.9 Chronic sinusitis, unspecified (principal); J34.2 Deviated nasal septum
CPT/HCPCS: 70486

== ENCOUNTER 2025-01-15 10:50 | Outpatient (CLI) | payer OTHER, SELFPAY ==
--- OUTSIDE RECORDS SUMMARY | 2025-01-15 11:55 | XMS_ITS | Clinical Summary ---
Author Organization [facility] Address [address] [place] [address] Care Team Providers Care Customer Service Assistant Name Role Phone Cabrera Desir MD Primary Care Provide r Allergies Active Allergy Reactions Criticality Noted Date Comments Penicillins Rash Medium 06/28/2022 Medications alendronate (FOSAMAX) 70 mg tablet 2 Active triamcinolone (KENALOG) 0.1 % ointment APPLY TOPICALLY TO THE AFFECTED AREA THREE TIMES DAILY NEEDED FOR ECZEMA 3 Active omeprazole (PriLOSEC) 20 mg capsule Take 1 capsule (20 mg total) by mouth daily Active calcium carbonate-vitam in D3 1,250mg (500mg elemental) - 5 mcg (200 units) per tablet Take 1 tablet by mouth 2 (two) times a day with meals Active omega-3 fatty acids (LOVAZA) 1 gram capsule Take 2 capsules (2 g total) by mouth 2 (two) times a day Active multivitamin with minerals tablet Take 1 tablet by mouth daily Active amLODIPine (NORVASC) 5 mg tablet Take 1 tablet (5 mg total) by mouth daily 3 Active aspirin 81 mg enteric coated tablet Take 1 tablet (81 mg total) by mouth every morning 3 Active atorvastatin (LIPITOR) 40 mg tablet Take 1 tablet (40 mg total) by mouth nightly at bedtime. 3 Active fluticasone propionate (FLONASE) 50 mcg/actuation nasal spray SHAKE LIQUID AND USE 1 SPRAY IN EACH NOSTRIL TWICE DAILY 3 Active fluorouraciL (EFUDEX) 5 % cream Apply topically 2 (two) times a day For a total of 42 days, Please wash hands well after applying. 40 g 3 Active Active Problems No known active problems Social History Tobacco Use Types Packs/Day Years Used Date Smoking Tobacco: Every Day Cigarettes Tobacco Cessation:Ready to Q uit: Not Asked; Counseling Given: Not Answered Personal Safety Answer Date Recorded Getting School Help Needed Not on file 06/24 Comments Unknown Sex and Gender Information Value Date Recorded Sex Assigned at Not on file Legal Sex Female 6:31 AM [employer] Gender Identity Not on file Sexual Orientation Not on file Obstetrics History Plan of Treatment Health Maintenance Due Date Last Done Comments Depression Screening 1945 Fall Risk Assessment 1945 Hepatitis C Screening 1945 Osteoporosis Screening-Bone Density Scan 1945 DTaP/Tdap/Td Vaccine (1 - Tdap) 11/29/1958 Hepatitis B Screening 11/29/1965 Zoster Vaccine (1 of 2) 11/29/1997 Well Visit 65+ 11/29/2012 Covid-19 Vaccine (2024-2 6 season) 2024 01/25/2022, 03/02/2021, 06/27/2020, Additional history exists Influenza Vaccine (#1) 2024 , 01/05/2021, 12/31/2019, Additional history exists Pneumococcal vaccine 65+ Completed 01/05/2021, 12/11 Insurance Care Teams Customer Service Assistant Relationship Specialty Start Date End Date Cabrera Desir MD [id number] [place] [address] PCP - General Emergency Medicine 06/11/22
== END 2025-01-15 10:51 | disposition home or self-care (01) ==
LOC: ANHAUDIO 10:50
PROVIDERS: PCP Emergency Medicine; Visit Provider Otolaryngology
DX: H90.6 Mixed conductive and sensorineural hearing loss, bilateral (principal); H69.90 Unspecified Eustachian tube disorder, unspecified ear; J38.1 Polyp of vocal cord and larynx; J01.90 Acute sinusitis, unspecified; H90.3 Sensorineural hearing loss, bilateral
CPT/HCPCS: 92557; 92567

== ENCOUNTER 2025-02-19 11:30 | Outpatient (RCR) | payer OTHER, SELFPAY | END 2025-02-19 23:59 | disposition home or self-care (01) | LOC: ANHAUDIO 11:30 | PROVIDERS: PCP Emergency Medicine; Visit Provider Emergency Medicine | DX: Z46.1 Encounter for fitting and adjustment of hearing aid (principal) | CPT/HCPCS: 99199; V5261 ==